=== PATIENT | male | born 1985 | race Caucasian/White ===

== ENCOUNTER 2018-07-13 17:30 | Emergency (ER) | payer BC ==
--- NOTE | 2018-07-13 17:41 | UC ---
Dental HPI - HPI Summary HPI Summary: 33 yo male presents with dental pain. He tells me that he knows he has bad teeth. Over the last 3-4 weeks he has been having pain in her left upper tooth and feels swelling overlying his left maxillary sinus. He has been taking tylenol and ibuprofen with good relief of pain. He is able to eat and drink, but has mild discomfort. Denies fever or chills. He recently obtained insurance and is in the process of finding a dentist. - History of Current Complaint Stated Complaint: DENTAL COMPLAINT Time Seen by Provider: 07/13/18 17:40 Hx Obtained From: Patient Onset/Duration: Gradual Onset Severity: Severe Pain Intensity: 8 Pain Scale Used: 0-10 Numeric - Allergies/Home Medications Allergies/Adverse Reactions: Allergies Allergy/AdvReac Type Severity Reaction Status Date / Time Penicillins Allergy See Comment Verified 07/13/18 17:40 Sulfa (Sulfonamide Allergy See Comment Verified 07/13/18 17:40 Antibiotics) Home Medications: Home Medications Acetaminophen [Tylenol Extra Strength] 500 mg PO Q8HR PRN 07/13/18 [History Confirmed 07/13/18] Ibuprofen TAB* [Advil TAB*] 800 mg PO Q8HR PRN 07/13/18 [History Confirmed 07/13] PMH/Surg Hx/FS Hx/Imm Hx - Additional Past Medical History Additional PMH: None - Surgical History Surgical History: None - Family History Known Family History: Positive: None - Social History Occupation: Employed Full-time Lives: With Family Alcohol Use: Occasionally Substance Use Type: None Smoking Status (MU): Heavy Every Day Tobacco Smoker Type: Cigarettes Review of Systems All Other Systems Reviewed And Are Negative: Yes Constitutional: Positive: Negative Skin: Positive: Negative Eyes: Positive: Negative ENT: Positive: Dental Pain Respiratory: Positive: Negative Cardiovascular: Positive: Negative Neurovascular: Positive: Negative Neurological: Positive: Negative Psychological: Positive: Negative Physical Exam - Summary Physical Exam Summary: GENERAL: NAD. WDWN. No pain distress. SKIN: No rashes, sores, lesions, or open wounds. HEENT: Head: AT/NC Eyes: EOM intact. Conjunctiva clear without inflammation or discharge. Nose: Nasal mucosa pink and moist. NTTP maxillary and frontal sinus. Throat: Posterior oropharynx without exudates, erythema, or tonsillar enlargement. Uvula midline. NECK: Supple. Nontender. No lymphadenopathy. CHEST: No accessory muscle use. Breathing comfortably and in no distress. CV: Pulses intact. Cap refill <2seconds NEURO: Alert. PSYCH: Age appropriate behavior. Triage Information Reviewed: Yes Vital Signs: Vital Signs: Temp Pulse Resp BP Pulse Ox 99.9 F 93 18 145/80 95 07/13/18 17:41 07/13/18 17:41 07/13/18 17:41 07/13/18 17:41 07/13/18 17:41 Vital Signs Reviewed: Yes Dental: Positive: Percussion Tenderness @ - Tooth #13, Gross Decay/Caries @ - Throughout, Dental Fracture @ - Tooth #13, Abscess @ - Tooth #13. Negative: Cellulitis @, Cervical Lymphadenopathy, Bleeding Dental Complaint Course/Dx - Course Course Of Treatment: Tooth #13 abscess. - Differential Dx/Diagnosis Provider Diagnosis: Tooth abscess Discharge - Sign-Out/Discharge Documenting (check all that apply): Patient Departure All imaging exams completed and their final reports reviewed: No Studies - Discharge Plan Condition: Stable Disposition: HOME Prescriptions: Chlorhexidine MW 0.12% 473ML* [Peridex Mouth Wash 0.12%] 15 ml MT BID #1 bottle Clindamycin HCl 300 mg PO TID #21 capsule Lidocaine 2% VISCOUS* [Xylocaine 2% Viscous*] 15 ml SWISH SPIT Q6H PRN #300 ml PRN Reason: Pain Patient Education Materials: Dental Abscess (ED) Referrals: No Primary Care Phys,NOPCP [Primary Care Provider] - Additional Instructions: If you develop a fever, shortness of breath, chest pain, new or worsening symptoms - please call your PCP or go to the ED. Your blood pressure was high at todays visit. Please see your primary provider within 4 weeks for recheck and re-evaluation. - Billing Disposition and Condition Condition: STABLE Disposition: Home
== END 2018-07-13 17:58 | disposition home or self-care (01) ==
LOC: UCEAST 17:30
DX: K04.7 Periapical abscess without sinus (principal); Z88.0 Allergy status to penicillin; Z88.2 Allergy status to sulfonamides; F17.210 Nicotine dependence, cigarettes, uncomplicated
CPT/HCPCS: 99202; G0463

== ENCOUNTER 2019-05-18 07:31 | Emergency (ER) | payer SELFPAY ==
--- NOTE | 2019-05-18 08:23 | UC ---
Lower Extremity/Ankle HPI - HPI Summary HPI Summary: Patient presents to urgent care for evaluation of his right ankle. Patient has pain for 7-10 days. Patient denies any specific trauma but states he may have rolled at work. No knee pain no hip pain. Patient states he is walking with a limp. Patient is taken Motrin 600 mg several times with little improvement. Patient has persistent swelling. No ecchymosis. States at times his toes tingle. 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 Patient's medications reviewed this visit. Patient without previous injury to this ankle. - History of Current Complaint Chief Complaint: UCLowerExtremity Stated Complaint: LOWER LEG PAIN Time Seen by Provider: 05/18/19 08:11 Hx Obtained From: Patient Onset/Duration: Gradual Onset Severity Initially: Moderate Severity Currently: Moderate Pain Intensity: 8 Pain Scale Used: 0-10 Numeric - Allergies/Home Medications Allergies/Adverse Reactions: Allergies Allergy/AdvReac Type Severity Reaction Status Date / Time Penicillins Allergy See Comment Verified 05/18/19 07:53 Sulfa (Sulfonamide Allergy See Comment Verified 05/18/19 07:53 Antibiotics) PMH/Surg Hx/FS Hx/Imm Hx Previously Healthy: Yes - Surgical History Surgical History: None - Family History Known Family History: Positive: Non-Contributory - Social History Occupation: Employed Full-time Lives: With Family Alcohol Use: Occasionally Substance Use Type: None Smoking Status (MU): Heavy Every Day Tobacco Smoker Type: Cigarettes Length of Time of Smoking/Using Tobacco: 1/2ppd Review of Systems All Other Systems Reviewed And Are Negative: Yes Constitutional: Positive: Negative Skin: Positive: Negative Eyes: Positive: Negative Musculoskeletal: Positive: Other: - Right ankle Physical Exam - Summary Physical Exam Summary: Vital Signs Reviewed: Yes A+Ox3, no distress Eyes: Conjunctiva Clear ENT: Hearing grossly normal neck: supple Respiratory: Positive: No respiratory distress, No accessory muscle use Cardiovascular: skin color reflect adequate perfusion 2+ DP, PT CBT < 2 sec all digit Musculoskeletal Exam: + SLE + flex.ext ankle with pain medial aspect No pain along tarsals, metatarsals + TTP medial malleoulus inferior, anterior aspect. No crepitus mild edema, no ecchymosis Neurological: Positive: Alert, ambulatory without difficulty Psychological: Positive: Normal Response To examiner Skin: Positive: no rash, no ecchymosis Triage Information Reviewed: Yes Vital Signs: Initial Vital Signs Temp 98.3 F 05/18/19 07:41 Pulse 98 05/18/19 07:41 Resp 18 05/18/19 07:41 BP 111/62 05/18/19 07:41 Pulse Ox 99 05/18/19 07:41 Diagnostics - Radiology No standard instances Radiology Interpretation Completed By: Radiologist - Patient Name: LANCE YI Medical Record#: [id number] Ordering Physician: Nandini Patel MD Acct.#: [id number] : 1985 Age: 34 Sex: M Location: [facility] Exam Date: 05/18/19757 ADM Status: REG ER Order Information: ANKLE RIGHT 3+ VWS Accession Number: [id number] CPT: 85444 Indication: RIGHT ankle and foot medial pain and swelling following twisting injury. Comparison: No relevant prior exams available on the [facility] [place]. Technique: AP, mortise, and lateral views RIGHT ankle. AP, lateral, and oblique views RIGHT foot. Report: #. Normal articular alignment at the RIGHT ankle and foot. Preserved joint spaces. #. No fracture or osteochondral lesion evident. #. Unremarkable soft tissue contours. IMPRESSION: #. Negative radiographic exam of the RIGHT ankle and foot. < Electronically signed by Abdirizak Yeung MD in OV> 05/18/19819 Dictated By: Abdirizak Yeung MD Dictated Date/Time: 05/18/19817 Transcribed Date/Time: 11/01 Copy to: CC:Nandini Patel MD; No Primary Care Phys,NOPCP Imaging - [facility] [place] [facility] [address] [address] ph ([phone]) ph ([phone]) ph ([phone]) This report is only to be considered final once signed by the Provider(s) as displayed in the "<Electronically Signed by >" field (s). Absence of a signature indicates the report is in a draft status and still needs to be finalized. In the event this document was created by someone other than the signing Provider, the individual initiating the document will be listed in the "Entered by:" or "Dictated by:" garcia. 1 of 1 Patient Name: LANCE YI Medical Record#: [id number] Ordering Physician: Nandini Patel MD Acct.#: [id number] : 1985 Age: 34 Sex: M Location: [facility] Exam Date: 05/18/19757 ADM Status: REG ER Order Information: FOOT RIGHT 3+ VWS Accession Number: [id number] CPT: 20803 Indication: RIGHT ankle and foot medial pain and swelling following twisting injury. Comparison: No relevant prior exams available [place] the [facility] [place]. Technique: AP, mortise, and lateral views RIGHT ankle. AP, lateral, and oblique views RIGHT foot. Report: #. Normal articular alignment at the RIGHT ankle and foot. Preserved joint spaces. #. No fracture or osteochondral lesion evident. #. Unremarkable soft tissue contours. IMPRESSION: #. Negative radiographic exam of the RIGHT ankle and foot. < Electronically signed by Abdirizak Yeung MD in OV> 05/18/19819 Dictated By: Abdirizak Yeung MD Dictated Date/Time: 05/18/19817 Transcribed Date/Time: 11/01 Copy to: CC:Nandini Patel MD; No Primary Care Phys,NOP Imaging - [facility] [address] [address] ph ([phone]) ph ([phone]) ph ) This report is only to be considered final once signed by the Provider(s) as displayed in the "<Electronically Signed by >" field (s). Absence of a signature indicates the report is in a draft status and still needs to be finalized. In the event this document was created by someone other than the signing Provider, the individual initiating the document will be listed in the "Entered by:" or "Dictated by:" garcia. 1 of 1 Lower Extremity Course/Dx - Course Course Of Treatment: Patient isn't urgent care for evaluation of 10 days swelling and pain in the ankle. Patient is mostly medial aspect. Patient denies any known trauma but states he may have inverted at work. ecchymosis. Patient without edema. Intermittent paresthesias of his toes. Patient takes Motrin with little improvement. On exam vital signs are stable. Patient with tenderness to medial malleolus anterior and inferior margin. No crepitus. Distal CSM intact. We'll check imaging. No suspicion for fracture. If no fracture anticipate Willard wrapped air splint and crutches. Avoid patient for Wednesday. Follow-up with sports medicine orthopedic. Patient's no gallop present in agreement with plan. - Differential Dx/Diagnosis Provider Diagnosis: Right ankle sprain Discharge ED - Sign-Out/Discharge Documenting (check all that apply): Patient Departure All imaging exams completed and their final reports reviewed: Yes - Discharge Plan Condition: Stable Disposition: HOME Patient Education Materials: Ankle Sprain (ED) Forms: *Work Release Referrals: [facility] Orthopedic Services [Provider Group] Sports [facility] [Provider Group] [facility] [place] [facility] [Outside] Additional Instructions: -wear willard wrap for comfort and support -apply ice (20 min at a time) every 2-3 hours for the next 2 days -use crutches until you can walk normally without a limp -Elevate your leg - this will help with swelling and pain - Alternate ibuprofen (advil, Motrin) 600mg and tylenol every 3 hours for pain. Take with food. Do NOT take for more than 4-5 days -Contact the home mortgage disclosure act specialist or fireworks display specialist to arrange a follow-up appointment next week. Contact your doctor or return with questions or concerns - Billing Disposition and Condition Condition: STABLE Disposition: Home
== END 2019-05-18 08:35 | disposition home or self-care (01) ==
LOC: UCEAST 07:31
DX: S93.491A Sprain of other ligament of right ankle, initial encounter (principal); F17.210 Nicotine dependence, cigarettes, uncomplicated; Z88.0 Allergy status to penicillin; Z88.2 Allergy status to sulfonamides; X50.0XXA Overexertion from strenuous movement or load, initial encounter; Y92.9 Unspecified place or not applicable; Y99.0 Civilian activity done for income or pay
CPT/HCPCS: 99213; G0463